=== PATIENT | male | born 1955 | race Caucasian/White ===

== ENCOUNTER → 2019-11-26 15:14 | Outpatient (CLI) | payer OTHER, SELFPAY ==
[2019-11-26 17:49] LABS: Absolute Lymphocyte Count 2.09 X10^3/uL (0.83-4.51); Absolute Neutrophil Count 2.6 X10^3/uL (2.0-7.7); Basophil# 0.03 X10^3/uL; Basophil% 0.6 % (0-1); Eosinophils% 1.9 % (0-5); Hematocrit 46.6 % (40-54); Hemoglobin 14.8 g/dL (13.0-16.5); Lymphocyte # 2.09 X10^3/ul (4.0); Lymphocyte % 39.8 % (19-41); Mean Corp Hgb Conc 31.8 g/dL (32-36); Mean Corpuscular Hgb 28.8 pg (27.0-32.0); Mean Corpuscular Volume 90.8 fL (80-94); Mean Platelet Vol. 9.5 fl (6.2-12.0); Monocyte# 0.44 X10^3/uL; Monocyte% 8.4 % (0-10); NRBC Flagged by Analyzer 0 % (0-5); Neutrophil # 2.58 X10^3/uL (2.7-7.7); Neutrophil % 49.1 % (47-70); Platelet Count 244 K/mm3 (150-450); RBC Distribution Width CV 12.4 % (11.6-14.6); RBC Distribution Width SD 41.3 fl (35.1-43.9); Red Blood Count 5.13 M/mm3 (4.6-6.2); White Blood Count 5.3 K/mm3 (4.4-11.0)
[2019-11-26 18:01] LABS: AST(SGOT) 21 U/L (15-37); Alanine Aminotransfer ALT/SGPT 24 U/L (16-61); Albumin, Serum 3.8 g/dL (3.2-5.0); Alkaline Phosphatase 47 U/L (45-117); Anion Gap 5 (5-15); BUN 15 mg/dL (7-18); BUN/Creat Ratio 15.8 RATIO (10-20); Calcium,Total 8.7 mg/dL (8.5-10.1); Chloride 105 mmol/L (98-107); Creatinine, Serum 0.95 mg/dL (0.70-1.30); EST Glomerular Filtration Rate 86 mL/min (>60); Est Glom Filt Rate - Afr Amer 103 mL/min (>60); Globulin 3.8 g/dL (2.2-4.2); Glucose 88 mg/dL (74-106); Potassium 4.2 mmol/L (3.5-5.1); Protein, Total 7.6 g/dL (6.4-8.2); Sodium Level 138 mmol/L (136-145)
== END ==
PROVIDERS: Visit Provider Family Medicine
DX: Z01.818 Encounter for other preprocedural examination (principal)
CPT/HCPCS: 36415; 80053; 85025

== ENCOUNTER 2019-12-19 08:40 | Day surgery (SDC) | payer OTHER, SELFPAY ==
[2019-12-19] VITALS (9 sets, daily range): BP systolic 105–135; BP diastolic 67–85; PULSE 46–98; RESP 12–18; TEMP 36.2–36.7; O2SAT 94–99; BMI 29.9
[2019-12-19] MEDS: Lactated Ringers 1,000 ML 100 ML IV ×2 (10:15→14:45)
--- NOTE | 2019-12-19 11:54 | DCINST_ITS ---
Discharge Diet: No Restrictions Discharge Activity: Use Crutches, - - can walk but limit weight bearing activities, use crutches to take weight off of foot. Encouraged to do range of motion exercises of ankle May resume sexual activity in: No Restrictions Weight Bearing Status: Partial weight bearing - right foot Keep extremity elevated above heart level: Operative Extremity Call your doctor if your incision/area has: Sudden Increased Bleeding, Increased Pain/ Swelling, Increased Redness, Foul Smelling Discharge, Swelling at the incision site Call your doctor if you observe: Fever of 101 or Higher, Numbness or Tingling, Shortness of breath, Chest pain, Calf discomfort, Uncontrolled pain Cleanse incision/area with: Do not get Incision Wet, Keep Dressing Clean & Dry Allergies/Adverse Reactions: Allergies Penicillins Allergy (Verified 12/10/19 13:55) Rash Medications to take at Discharge NK 12/10/19 Primary Care Physician: Care Physician,No Primary [Primary Care Provider] - Test Results: Test results from this visit will be discussed in further detail at your follow- up appointment, if applicable. Please Follow Up With: Karin Quintanilla DPM - 1 week Proposed Discharge Date: 12/19/19
--- NOTE | 2019-12-19 11:57 | PCM.OPRPT ---
Report of Operation Date of Procedure: 12/19/19 Pre-Operative Diagnosis: right ankle impingement. pain right ankle. right ankle arthritis Post-Operative Diagnosis: same Surgery/Procedure Performed:: right ankle arthroscopy Description of Surgical Findings:: hemostasis: thigh tourniquet 20cc bupivacaine 0.5% 5cc lidocaine with epi 1% nylon 4-0 found lots of synovitis turning machine operator: Karin Quintanilla - surgeon turning machine operator: Alfie Kohler - PGY2 Type of Anesthesia:: General, Local Estimated Blood Loss (mL): <25 Description of Procedure: Patient is a 64 year old male who presents to office with palpable click in his right ankle with pain. Imaging was obtained showing INDICATION FOR SURGERY: The patient is a gentleman with right ankle pain and audible clicking. Imaging was obtained showing anterior impingement. On exam arthritic spurring was felt. Patient is active and regularly participates in physical activity such as running and would like to continue this activity. Surgical intervention was discussed with the patient to clean out the ankle joint and remove the bone spurring. Risks, benefits, and alternatives were discussed with the patient. Risk of COVID exposure was also discussed. He wished to proceed with surgery. PROCEDURE IN DETAIL: Patient was seen in the preoperative treatment area where all questions were answered. The patient was identified, brought to the operating room, and placed in supine position on the table. A well padded thight tourniquet was applied but not inflated. After induction of general anesthesia, the right ankle was sterilely prepped and draped. Ankle inflated with 15cc of saline and 5cc of 1% lidocaine with epinephrine. We exsanguinated the leg and inflated tourniquet to 300 mmHg. Anterior medial Portal site was established between the anterior tibialis tendon and saphenous vein at the level of the ankle joint. This was created with a #15 blade through the epidermis and dermis and blunt dissection with a curved hemostat into the ankle joint capsule. This technique was utilized to carry out the anterior lateral portal. We protected the superficial peroneal nerve branches. On inspection of the ankle joint, noted to have some arthritis on the distal talus and anterior tibia with spurring noted. There was evidence of hypertrophic impingement lesion and synovitis diffuse throughout the ankle. There was no evidence of an obvious loose body. We went ahead and using a full-radius resector, debrided the synovitis throughout. A satish and hand rasp and debrider and grasper was utilized to remove the bony prominence to the anterior tibia and dorsal talus. All instruments removed from the ankle after we inspected both medial and lateral aspects completely. Of note, the talar dome was grossly intact no lesions noted. Also of note is that at this time the ankle went through the ROM without the audible click noted preoperatively. Fluoroscopy was utilized to confirm removal of then anterior ankle bony spurs. At this time, portal sites were closed with simple nylon sutures, injected with Marcaine as well as the ankle following closure. Site was dressed with adaptic, 4x4, abds, kerlix binh wrap. The patient tolerated the procedure well. Tourniquet was deflated with prompt brisk hyperemic response noted to all digits. Patient was transported to PACU with vital signs stable and vascular status intact. After a period of post operative monitoring patient was discharged home. Patient is to follow up in 1 week. Patient is to rest, ice, elevate right limb. Prescription for norco was sent to pharmacy. Patient has crutches for partial weight bearing. Patient encouraged to do ROM ankle exercises. Patient is to contact doctors office if any concerns. It should be noted that a significant portion of the above procedure was performed by the attending physician with basic simple parts such as closure performed by the resident physician under the direct supervision of the attending physician - Admit VTE Documentation VTE Present on Admission: Yes VTE Mechan Device Prophylaxis: SCD's VTE Pharm Prophylaxis ordered?: No
--- NOTE | 2019-12-19 12:00 | RAD_ITS ---
HISTORY: ARTHROSCOPY COMPARISON: No previous imaging FINDINGS: # of images incl. paperwork: 19 XR Ankle Min 3 Views : 17 images of the ankle, the images are not labeled left or right, but the exam is titled right. No radiologist was in attendance. No fracture or osseous abnormality. The ankle mortise is intact. Soft tissue swelling is not seen. RAD/Ankle min 3 Views IMPRESSION: Normal Right ankle at 0457 Reported and signed by: Castro Lindsey MD Electronically Signed: Castro Lindsey MD at 4:56 EST Tel , Service support ,
[2019-12-19] MEDS: Bupivacaine Mpf 0.5% 30 ML VIAL (14:08)
--- NOTE | 2019-12-19 15:07 | RAD_ITS ---
STUDY: X-RAY - RIGHT ANKLE REASON FOR EXAM: Male, 64 years old. POST OP ANKLE ARTHROSCOPY, OSTEOCHONDRAL DEFECT REPAIR WITH SUBCHONDRAL DRILLING TECHNIQUE: 3 view(s) of the ankle. COMPARISON: None. FINDINGS: Normal visualized distal tibia and fibula. Normal medial and lateral malleoli. Normal tibiotalar articulation and ankle mortise. Linear lucency at the medial aspect of the talar dome with recent procedure. The visualized subtalar, talonavicular, calcaneocuboid and tarsal articulations are normal. The soft tissue structures are unremarkable. RAD/Ankle min 3 Views IMPRESSION: Linear lucency at the medial aspect of the talar dome with recent procedure. No acute fracture or dislocation identified. Electronically Signed: René Meyers, at 21:50 EST Tel , Service support ,
== END 2019-12-19 16:51 | disposition home or self-care (01) ==
LOC: SDC 08:42 → AC 08:43
PROVIDERS: Referring Provider Podiatrist Foot & Ankle Surgery; Visit Provider Podiatrist Foot & Ankle Surgery
PROC: (CPT 28120; principal; 2019-12-19 11:45)
DX: M89.8X7 Other specified disorders of bone, ankle and foot (principal); M25.871 Other specified joint disorders, right ankle and foot; M25.771 Osteophyte, right ankle; M65.9 Synovitis and tenosynovitis, unspecified; M19.071 Primary osteoarthritis, right ankle and foot; Z20.828 Contact with and (suspected) exposure to other viral communicable diseases
CPT/HCPCS: 28120; 73610; 76000; 87426; C9803; J7120; J2405